=== PATIENT | male | born 1985 | race Caucasian/White ===

== ENCOUNTER 2023-12-22 21:44 | Observation (INO) | payer OTHER ==
--- NOTE | 2023-12-22 21:50 | ED ---
General Adult HPI - General Stated complaint: R knee injury, L ankle injury Time Seen by Provider: 12/22/23 21:45 - History of Present Illness Initial comments: Dictation was produced using [employer] dictation software. please excuse any grammatical, word or spelling errors. Chief Complaint: 38-year-old male presents emergency department with rigid right knee dislocation left ankle sprain History of Present Illness: Patient is a 38-year-old male presents to the emergency department after he fell. He was taking a nap when he was called down to eat dinner. He came down the stairs and twisted his left ankle and fell to the ground and when he looked up and saw that his right knee was dislocated. His family helped him stand up and his right knee relocated. Patient complaining of right knee pain left ankle pain. Denies any numbness tingling paresthesias. Patient has history of prediabetes. He is prescribed metformin but is not taking it. Patient given analgesics by prehospital providers. The ROS documented in this emergency department record has been reviewed and confirmed by me. Those systems with pertinent positive or negative responses have been documented in the HPI. All other systems are other negative and/or noncontributory. - Related Data Allergies Allergy/AdvReac Type Severity Reaction Status Date / Time No Known Allergies Allergy Verified 12/22/23 22:57 Review of Systems ROS Statement: Those systems with pertinent positive or pertinent negative responses have been documented in the HPI. ROS Other: All systems not noted in ROS Statement are negative. General Exam - General Exam Comments Initial Comments: General: Well-appearing, nontoxic, no acute distress. Head: Normocephalic, atraumatic Eyes: PERRLA, EOMI ENT: Airway patent Chest: Nonlabored breathing Skin: No visual rash, normal skin tone Neuro: Alert and oriented 3 Musculoskeletal: No gross abnormalities Lower extremities: Ankle slightly swollen, right knee is without any gross deformity, DP pulse is 2+ Course Vital Signs 12/22/23 22:50 Temperature 98.0 F Pulse Rate 87 Respiratory 22 Rate O2 Sat by Pulse 98 Oximetry Medical Decision Making - Medical Decision Making Was pt. sent in by a medical professional or institution (, PA, TONGUE TRIMMER, urgent care, hospital, or usp...) When possible be specific @ -No Did you speak to anyone other than the patient for history (EMS, parent, family, police, friend...)? What history was obtained from this source @ -No Did you review nursing and triage notes (agree or disagree)? Why? @ -I reviewed and agree with nursing and triage notes Were old charts reviewed (outside hosp., previous admission, EMS record, old EKG, old radiological studies, urgent care reports/EKG's, usp records)? Report findings @ -No old charts were reviewed Differential Diagnosis (chest pain, altered mental status, abdominal pain women, abdominal pain men, vaginal bleeding, musculoskeletal, weakness, fever, dyspnea, syncope, headache, dizziness, GI bleed, back pain, seizure, CVA, palpatations, mental health)? @ -Not applicable EKG interpreted by me (3pts min.). @ -None done X-rays interpreted by me (1pt min.). @ -Right knee x-ray left ankle x-ray shows no acute processes CT interpreted by me (1pt min.). @ -None done U/S interpreted by me (1pt. min.). @ -None done What testing was considered but not performed or refused? (CT, X-rays, U/S, labs)? Why? @ -None What meds were considered but not given or refused? Why? @ -None Did you discuss the management of the patient with other professionals (professionals i.e. , PA, TONGUE TRIMMER, lab, RT, psych nurse, addiction social worker, aircraft maintenance manager, teacher, county records management officer, rn case manager hospice)? Give summary @ -See above. Case also discussed with vascular surgery who is willing to be on consult. Was smoking cessation discussed for >3mins.? @ -No Was critical care preformed (if so, how long)? @ -No Were there social determinants of health that impacted care today? How? (Homelessness, low income, unemployed, alcoholism, drug addiction, transportation, low edu. Level, literacy, decrease access to med. care, shelter, rehab)? @ -No Was there de-escalation of care discussed even if they declined (Discuss DNR or withdrawal of care, Hospice)? DNR status @ -No What co-morbidities impacted this encounter? (DM, HTN, Smoking, COPD, CAD, Cancer, CVA, ARF, Chemo, Hep., AIDS, mental health diagnosis, sleep apnea, morbid obesity)? @ -None Was patient admitted / discharged? Hospital course, mention meds given and route, prescriptions, significant lab abnormalities, going to OR and other pertinent info. @ -38-year-old male presents emergency department with concern for right knee dislocation with spontaneous relocation. Vital signs stable. Neurovascular check of the right lower extremity is unremarkable. Left ankle appears to be sprain. Left ankle x-ray is negative. Patient be admitted to observation consultation to orthopedic surgery vascular surgery for concerns of popliteal artery spasms. Patient ordered for serial neurovascular checks of the right lower extremity Undiagnosed new problem with uncertain prognosis? @ -No Drug Therapy requiring intensive monitoring for toxicity (Heparin, Nitro, Insulin, Cardizem)? @ -No Were any procedures done? @ -No Diagnosis/symptom? Acute, or Chronic, or Acute on Chronic? Uncomplicated ( without systemic symptoms) or Complicated (systemic symptoms)? @ -Right knee dislocation Side effects of treatment? @ -No Exacerbation, Progression, or Severe Exacerbation? @ -No Poses a threat to life or bodily function? How? (Chest pain, [place], [place], pneumonia, PE, COPD, DKA, ARF, appy, cholecystitis, CVA, Diverticulitis, Homicidal, Suicidal, threat to staff... and all critical care pts) @ -yes Disposition Clinical Impression: Knee dislocation Disposition: ADMITTED IP TO THIS [facility] Condition: Fair Referrals: None,Stated [Primary Care Provider] - 1-2 days Decision Time: 01:36
--- NOTE | 2023-12-22 22:29 | XR ---
EXAMINATION TYPE: XR knee complete RT DATE OF EXAM: 12/22/2023 CLINICAL HISTORY: Knee dislocation TECHNIQUE: Three views of the right knee are obtained. COMPARISON: None. FINDINGS: There is no acute fracture/dislocation evident in right knee. Mild to moderate tricompartm ent joint space loss with mild spurring patellofemoral compartment. Increase density in the suprapate llar bursa suspicious for moderate-sized joint effusion. IMPRESSION: There is no acute fracture or dislocation in the right knee.
--- NOTE | 2023-12-22 22:30 | XR ---
EXAMINATION TYPE: XR ankle complete LT DATE OF EXAM: 12/22/2023 CLINICAL HISTORY: ankle sprain, knee dislocation TECHNIQUE: Frontal, lateral and oblique images of the left ankle are obtained. COMPARISON: None. FINDINGS: There is no acute fracture/dislocation evident in the left ankle. The ankle mortise appea rs within normal limits. Mild to moderate diffuse subcutaneous edema with more focal moderate soft ti ssue swelling over the lateral malleolus. IMPRESSION: There is no acute fracture or dislocation in the left ankle.
[2023-12-23] MEDS ORDERED: ONDANSETRON 4 MG/2 ML VIAL IVP PRN (01:30)
[2023-12-23] MEDS ORDERED: NALOXONE 0.4 MG/ML 1 ML VIAL IV PRN (01:30)
[2023-12-23] MEDS ORDERED: oxyCODONE-APAP 5-325MG 1 EACH TAB PO PRN (01:30)
[2023-12-23 01:58] LABS: Basophils # (A) 0.1 k/uL (0-0.2); Basophils % (A) 1 %; Eosinophils # (A) 0.2 k/uL (0-0.7); Eosinophils % (A) 1 %; HCT 44.3 % (39.0-53.0); HGB 14.6 gm/dL (13.0-17.5); Lymphocytes # (A) 3.2 k/uL (1.0-4.8); Lymphocytes % (A) 23 %; MCH 29.8 pg (25.0-35.0); MCV 90.3 fL (80.0-100.0); Mean Platelet Volume 9.3; Monocytes # (A) 0.5 k/uL (0-1.0); Monocytes % (A) 4 %; Neutrophils % (A) 71 %; Platelet Count 276 k/uL (150-450); RBC 4.91 m/uL (4.30-5.90); RDW 13.1 % (11.5-15.5); WBC 14.2 k/uL (3.8-10.6)
[2023-12-23 02:08] LABS: African American GFR (CKD) >90 (>60 ml/min/1.73 sqM); Anion Gap 5 mmol/L; Blood Urea Nitrogen 18 mg/dL (9-20); Calcium 8.9 mg/dL (8.4-10.2); Carbon Dioxide 29 mmol/L (22-30); Chloride 105 mmol/L (98-107); Glucose 178 mg/dL (74-99); Non-African American GFR(CKD) >90 (>60 ml/min/1.73 sqM); Potassium 3.9 mmol/L (3.5-5.1); Sodium 139 mmol/L (137-145)
[2023-12-23] MEDS: KETOROLAC 15 MG/ML 1 ML VIAL IVP PRN (02:12)
[2023-12-23] MEDS: SODIUM CHLORIDE 0.9% 1,000 ML IV SCH (02:13)
[2023-12-23 02:21] LABS: Partial Thromboplastin Time 24.7 sec (22.0-30.0); Prothrombin Time 10.5 sec (10.0-12.5)
--- NOTE | 2023-12-23 07:56 | P.CNOR ---
History of Present Illness - HPI History of present illness: the patient is very pleasant extremely morbidly obese 38-year-old male who is presently in the emergency department with concern for a right knee patellar dis location versus walter dislocation. According to the patient yesterday he got up from sleeping to go outside and eat when he lost his balance and fell. He injured his right knee and left ankle.the patient is unsure of how he fell but states there is obvious deformity in his knee. He was helped up and his knee straightened. He had difficult time ambulating due to both extremities being injured and was brought to the ER. In the ER x-rays were normal but given the patient's weight, mechanism of injury, and deformity emergency department physician had concern for a knee dislocation. ABIs were normal in the emergency department. Both orthopedics and vascular surgery were consulted and the p jane was admitted to internal medicine. Past Medical History Past Medical History: Hypertension Additional Past Medical History / Comment(s): pre diabetic Past Surgical History: No Surgical Hx Reported Past Psychological History: No Psychological Hx Reported Smoking Status: Never smoker Past Alcohol Use History: None Reported Past Drug Use History: None Reported Medications and Allergies Home Medications Medication Instructions Recorded Confirmed Type No Known Home Medications 12/23/23 12/23/23 History Allergies Allergy/AdvReac Type Severity Reaction Status Date / Time No Known Allergies Allergy Verified 12/23/23 07:41 Physical Examination the patient is resting comfortably on a hospital gurney. He is extremely morbidly obese. He is alert and able to answer questions. He demonstrates nonlabored breathing. He is diaphoretic. His head is normocephalic and atraumatic. His abdomen is obese. On inspection of the right lower extremity there are no obvious deformities. There is swelling and ecchymosis over the knee and a moderate effusion. There is global tenderness throughout the knee. Ligamentous exam is deferred due to guarding and patient discomfort. The patient's thigh and calf are soft and compressible. The patient has palpable dorsalis pedis and posterior tibial pulses. He is able to actively plantarflex and dorsiflex his ankle and his toes. Sensation is intact to light touch in the distribution of the superficial peroneal nerve, deep peroneal nerve, and tibial nerve. Inspection of the left ankle shows mild swelling and diffuse tenderness. There are no obvious deformities. Results x-rays of the right knee and left ankle are unremarkable and show no obviously dislocated joints or fractures. - Labs Labs: Abnormal Lab Results - Last 24 Hours (Table) 12/23/23 12/23/23 Range/Units 01:39 01:39 WBC 14.2 H (3.8-10.6) k/uL Neutrophils # 10.0 H (1.3-7.7) k/uL Glucose 178 H (74-99) mg/dL H & H 12/23/23 Range/Units 01:39 Hgb 14.6 (13.0-17.5) gm/dL Hct 44.3 (39.0-53.0) % Coagulation 12/23/23 Range/Units 01:39 INR 1.0 (<1.2) Result Diagrams: 12/23/23 01:39 12/23/23 01:39 Assessment and Plan Assessment: acute right knee injury patellar dislocation versus knee dislocation Left ankle sprain Extreme morbid obesity with BMI 54.7 Plan: I met with and examined the patient in the emergency department and also reviewed all imaging studies. The patient's right knee injury is most likely a transient patellar dislocation that it is possible that he had a walter knee di slocation. Other than swelling and ecchymosis in the knee his exam is completely benign with soft compartments, no nerve deficits and a well-perfused foot with a palpable pulse. I would recommend an MRI of the right knee to rule out a multi-ligamentous knee injury. This has been ordered and hopefully can be completed at this facility given the patient's extreme morbid obesity. In the interim he should be in a knee immobilizer on the right knee. If the patient had a transient patellar dislocation he is okay to discharge in a brace and can weight-bear as tolerated. If the patient did in fact dislocate his knee and has a multi-ligamentous knee injury that is an injury that is outside of my scope of practice and the capabilities of this facility. He would need transfer and follow-up with an orthopedic surgeon that manages multi-ligamentous knee injuries. I would defer arranging this to the primary service. The patient does not appear to have a vascular injury but we'll defer further workup and management to vascular surgery who has been consulted. In regards to patient's left ankle he most likely has a sprain and I would recommend either a brace or boot and protected weightbearing. We will continue to follow and we'll make recommendations pending the patient's right knee MRI. Time with Patient: Greater than 30
--- NOTE | 2023-12-23 09:35 | US ---
EXAMINATION TYPE: US arterial LE multi level DATE OF EXAM: 12/23/2023 8:50 AM CLINICAL INDICATION: Male, 38 years old with history of dislocated knee,evaluate arterial flow; Patie nt dislocated right knee this weekend, wanted to assess any arterial flow problems, both feet warm to the touch History of: Smoker: n Hypertension: y Diabetic: pre Hyperlipidemia: n TIA/CVA: n Previous Vascular Surgery: n CAD: n WV: n Vascular Ulcers: n Claudication: n Gangrene: n Doppler Waveforms: Right: Multiphasic Left: Multiphasic Right Brachial Pressure: 158 Left Brachial Pressure: 171 Ankle-Brachial Indices: Right: 1.0 Left: 1.1 (Vessel hardening > 1.4; Normal 0.9 - 1.4, Moderate 0.7 - 0.9, Severe 0.5-0.7) Toe Brachial Indices: Right: 0.9 Left: 0.9 IMPRESSION: Ankle brachial indices within normal limits.
--- NOTE | 2023-12-23 10:40 | P.GSCN ---
History of Present Illness Consult date: 12/23/23 Reason for Consult: Dislocated knee Requesting physician: Ritchie Ordonez History of present illness: This is a pleasant 38-year-old male Who was brought into the emergency department yesterday after stumbling and taking a fall. He states that he braced himself going down on his right knee on the fall. States he needed some help getting up. Afterwards he had looked at his knee and noticed that it looke d displaced. He came in for further evaluation. Consult was placed for orthopedic surgery as well as vascular surgery. Patient states he has pain and swelling in his knee however he has no other pain down his lower extremity no pain in his foot or toes. No numbness or tingling. He has good range of motion of his ankle and toes. Review of Systems A 14 point review systems was completed all pertinent positives and negatives as stated in the HPI. Past Medical History Past Medical History: Hypertension Additional Past Medical History / Comment(s): pre diabetic Past Surgical History: No Surgical Hx Reported Past Psychological History: No Psychological Hx Reported Smoking Status: Never smoker Past Alcohol Use History: None Reported Past Drug Use History: None Reported Medications and Allergies Home Medications Medication Instructions Recorded Confirmed Type No Known Home Medications 12/23/23 12/23/23 History Allergies Allergy/AdvReac Type Severity Reaction Status Date / Time No Known Allergies Allergy Verified 12/23/23 07:41 Surgical - Exam Vital Signs Temp Pulse Resp Pulse Ox 98.0 F 87 22 98 12/22/23 22:50 12/22/23 22:50 12/22/23 22:50 12/22/23 22:50 General appearance: The patient is alert, oriented, appears in no acute distress. Obese. HET: Head is normocephalic and atraumatic. Pupils are equal and reactive. Neck: Supple. Heart: Regular. Lungs: Equal expansion, normal respiratory effort. Abdomen: Soft, nontender, nondistended. Extremities: Normal skin color and turgor. Right knee with swelling and bruising. Palpable bilateral DP and PT pulses. Good capillary refill, sensorimotor intact. Neurological: No focal deficits. Strength and sensation are grossly intact. Results - Labs 12/23/23 01:39 12/23/23 01:39 Abnormal Lab Results - Last 24 Hours (Table) 12/23/23 12/23/23 Range/Units 01:39 01:39 WBC 14.2 H (3.8-10.6) k/uL Neutrophils # 10.0 H (1.3-7.7) k/uL Glucose 178 H (74-99) mg/dL Diabetes panel 12/23/23 Range/Units 01:39 Sodium 139 (137-145) mmol/L Potassium 3.9 (3.5-5.1) mmol/L Chloride 105 (98-107) mmol/L Carbon Dioxide 29 (22-30) mmol/L BUN 18 (9-20) mg/dL Creatinine 0.85 (0.66-1.25) mg/dL Glucose 178 H (74-99) mg/dL Calcium 8.9 (8.4-10.2) mg/dL Calcium panel 12/23/23 Range/Units 01:39 Calcium 8.9 (8.4-10.2) mg/dL Pituitary panel 12/23/23 Range/Units 01:39 Sodium 139 (137-145) mmol/L Potassium 3.9 (3.5-5.1) mmol/L Chloride 105 (98-107) mmol/L Carbon Dioxide 29 (22-30) mmol/L BUN 18 (9-20) mg/dL Creatinine 0.85 (0.66-1.25) mg/dL Glucose 178 H (74-99) mg/dL Calcium 8.9 (8.4-10.2) mg/dL Adrenal panel 12/23/23 Range/Units 01:39 Sodium 139 (137-145) mmol/L Potassium 3.9 (3.5-5.1) mmol/L Chloride 105 (98-107) mmol/L Carbon Dioxide 29 (22-30) mmol/L BUN 18 (9-20) mg/dL Creatinine 0.85 (0.66-1.25) mg/dL Glucose 178 H (74-99) mg/dL Calcium 8.9 (8.4-10.2) mg/dL - Imaging Comments: Arterial duplex lower extremities with bilateral good waveforms and multiphasic signals. KATERYNA right 1.00, left 1.07 Knee x-ray reports no acute fracture or dislocation in the right knee. X-ray left ankle no acute fracture or dislocation of the left ankle. Assessment and Plan Assessment: 1. Acute right knee injury, patellar dislocation versus knee dislocation 2. Morbid obesity Plan: 1. Lower extremity arterial duplex ordered and reviewed, with evidence of good blood flow 2. Continue with recommendations from orthopedic surgery 3. There is no indication for any vascular surgical intervention Thank you for this consultation, we will sign off at this time. The impression and plan of care has been dictated as directed. I performed a history and examination of this patient, discussed the same with the dictator. I agree with the dictator's note ,documented as a scribe. Any additional findings or plans will be noted.
[2023-12-23] MEDS: FAMOTIDINE 20 MG TAB PO SCH (11:56)
--- NOTE | 2023-12-23 11:58 | P.HPIM ---
History of Present Illness Patient is a pleasant 38-year-old male patient is a pleasant 38-year-old male admitted for fall and right patellar dislocation although imaging is negative although patient has significant swelling unable to bear weight. Patient also has a Doppler ultrasound of the right leg which is also within normal limits. Patient was evaluated by orthopedic surgery they are recommending an MRI to rule out any ligamental tears. Further plan depending on MRI results. Patient is obese. REVIEW OF SYSTEMS: CONSTITUTIONAL: No fever, no malaise, no fatigue. HEENT: No recent visual problems or hearing problems. Denied any sore throat. CARDIOVASCULAR: No chest pain, orthopnea, PND, no palpitations, no syncope. PULMONARY: No shortness of breath, no cough, no hemoptysis. GASTROINTESTINAL: No diarrhea, no nausea, no vomiting, no abdominal pain. NEUROLOGICAL: No headaches, no weakness, no numbness. HEMATOLOGICAL: Denies any bleeding or petechiae. GENITOURINARY: Denies any burning micturition, frequency, or urgency. MUSCULOSKELETAL/RHEUMATOLOGICAL: As mentioned in the HPI ENDOCRINE: Denies any polyuria or polydipsia. The rest of the 14-point review of systems is negative. PHYSICAL EXAMINATION: GENERAL: The patient is alert and oriented x3, not in any acute distress. Well developed, well nourished. HEENT: Pupils are round and equally reacting to light. EOMI. No scleral icterus. No conjunctival pallor. Normocephalic, atraumatic. No pharyngeal erythema. No thyromegaly. CARDIOVASCULAR: S1 and S2 present. No murmurs, rubs, or gallops. PULMONARY: Chest is clear to auscultation, no wheezing or crackles. ABDOMEN: Soft, nontender, nondistended, normoactive bowel sounds. No palpable organomegaly. MUSCULOSKELETAL: As mentioned in HPI, patient has significant swelling and bruises in the right knee active and passive motions of the right knee are restricted EXTREMITIES: No cyanosis, clubbing, or pedal edema. NEUROLOGICAL: Gross neurological examination did not reveal any focal deficits. SKIN: No rashes. Assessment and plan -Right knee swelling and pain: Patient is getting an MRI to see if there is any patellar dislocation with or without ligamental injury. Orthopedic surgery evaluated the patient patient is on Percocet and Toradol for pain along with Pepcid. -Obesity DVT prophylaxis: Lovenox Past Medical History Past Medical History: Hypertension Additional Past Medical History / Comment(s): pre diabetic Past Surgical History: No Surgical Hx Reported Past Psychological History: No Psychological Hx Reported Smoking Status: Never smoker Past Alcohol Use History: None Reported Past Drug Use History: None Reported Medications and Allergies Home Medications Medication Instructions Recorded Confirmed Type No Known Home Medications 12/23/23 12/23/23 History Allergies Allergy/AdvReac Type Severity Reaction Status Date / Time No Known Allergies Allergy Verified 12/23/23 07:41 Physical Exam Vitals: Vital Signs Temp Pulse Resp BP Pulse Ox 12/23/23 04:00 91 20 145/56 94 L 12/23/23 02:07 90 18 144/104 95 12/22/23 22:50 98.0 F 87 22 98 Intake and Output 12/22/23 12/23/23 12/23/23 22:59 06:59 14:59 Other: Weight 163.293 kg Results CBC & Chem 7: 12/23/23 01:39 12/23/23 01:39 Labs: Abnormal Lab Results - Last 24 Hours (Table) 12/23/23 12/23/23 Range/Units 01:39 01:39 WBC 14.2 H (3.8-10.6) k/uL Neutrophils # 10.0 H (1.3-7.7) k/uL Glucose 178 H (74-99) mg/dL
[2023-12-23] MEDS: oxyCODONE-APAP 7.5-325MG 1 EACH TAB PO PRN (16:35)
--- NOTE | 2023-12-23 20:10 | MR ---
EXAMINATION TYPE: MR knee RT wo con DATE OF EXAM: 12/23/2023 COMPARISON: Radiograph 12/22/2023 HISTORY: 38-year-old male Right knee injury, dislocation. TECHNIQUE: Multiplanar, multisequence imaging of the right knee is performed without IV contrast. FINDINGS: Extensive anterior soft tissue swelling. Extensive hemorrhagic fluid above the patella cecilia uring up to 10.1 cm craniocaudal by 2.3 cm thick by 10.5 cm wide. There is evidence of a quadriceps t endon rupture. Some minimal lateral inserting fibers may remain, sagittal image 29 but the vast major ity is torn and stump retracted by approximately 2.3 cm. Secondary redundancy of the patellar tendon and lateral patellar translation. Mild to moderate irregular cartilage loss along the patellar articular cartilage. Trochlear articular cartilage is relatively maintained. Some degenerative signal noted within the posterior horn and body of the medial meniscus without disc rete tear. Lateral meniscus also appears intact. Bicompartmental articular cartilage appears maintained. The ACL, PCL appear intact. Prominent edema overlying the MCL could relate to the generalized soft tissue swelling or grade 1 MCL sprain. The graft some thickening and inhomogeneity at the femoral attachment of the LCL proper coul d represent additional grade 1 sprain. LCL complex otherwise appears intact. Normal popliteal artery anatomy and muscle bulk. No suspicious bone marrow replacement. Patchy red marrow may be seen in the setting of anemia, obesit y, smoking, chronic disease. Small joint effusion. This effusion shows some low T2-weighted signal, axial image 26 suggesting some hemorrhage. No Bejarano's cyst. IMPRESSION: 1. Quadriceps tendon rupture at its patellar insertion. Stump retraction by 2.3 cm. Minimal lateral i nserting fibers may remain. 2. Extensive associated anterior hematoma above the patella measuring up to 10.1 x 2.3 x 10.5 cm. Sma ll joint effusion, likely some blood within the joint given low T2 signal. 3. Grade 1 sprains MCL and femoral attachment of the LCL proper. 4. Underlying mild patellofemoral compartmental OA characterized by irregular cartilage thinning shruti g the patellar articular surface. 5. Degenerative signal posterior horn and body of the medial meniscus without discrete meniscal tear at this time.
--- NOTE | 2023-12-24 08:00 | P.PN ---
Progress Note - Text I met with the patient this morning to discuss his MRI results. He has a full- thickness quadriceps tendon tear. We discussed that due to his extreme morbid obesity and body habitus clinical exam of the knee is exceedingly difficult but he does have a palpable defect above the patella and an inability to perform a straight leg raise. My recommendation was to perform an open repair of his quadriceps tendon later today. His treatment nothing by mouth until surgery. I'm happy taking over as primary service given the patient's isolated orthopedic injury.
[2023-12-24] MEDS: ENOXAPARIN 60 MG/0.6 ML SYRINGE SQ SCH (09:22)
--- NOTE | 2023-12-24 10:04 | P.PN ---
Subjective Progress Note Date: 12/24/23 Principal diagnosis: Right knee injury Patient is seen and examined today as a follow-up for right knee injury. He is currently lying in bed with pillow under his right knee. States he has pain however not too bad without movement. Yesterday he underwent arterial duplex of the lower extremities with normal bilateral lower extremity arterial flow. He had his MRI of the knee yesterday which reported quadricep tendon rupture at patellar insertion. With anterior hematoma above the patella. Patient is scheduled to undergo surgery today with orthopedics for right open quadricep tendon repair. Objective - Vital Signs Vital signs: Vital Signs Temp 98.0 F 12/24/23 07:00 Pulse 63 12/24/23 07:00 Resp 16 12/24/23 07:00 BP 119/70 12/24/23 07:00 Pulse Ox 98 12/24/23 07:00 FiO2 Intake & Output 12/23/23 12/24/23 12/24/23 18:59 06:59 18:59 Intake Total 118 Output Total 525 Balance 118 -525 Weight 163.293 kg Intake: Oral 118 Output: Urine 525 Other: Voiding Method Toilet Toilet # Voids 1 - Exam General appearance: The patient is alert, oriented, appears in no acute distress. HET: Head is normocephalic and atraumatic. Neck: Supple. Abdomen: Soft, nondistended. Extremities: Normal skin color and turgor. Right knee swelling and bruising. Palpable DP and PT pulses. Neurological: No focal deficits. - Labs CBC & Chem 7: 12/23/23 01:39 12/23/23 01:39 Assessment and Plan Assessment: 1. Acute right knee injury, patellar dislocation versus knee dislocation 2. Morbid obesity Plan: 1. Lower extremity arterial duplex ordered and reviewed, with evidence of good blood flow. This was discussed with patient. 2. Continue with recommendations from orthopedic surgery 3. There is no indication for any vascular surgical intervention Thank you for this consultation, we will sign off at this time. Please do not hesitate to call us if further needed. The impression and plan of care has been dictated as directed. I performed a history and examination of this patient, discussed the same with the dictator. I agree with the dictator's note ,documented as a scribe. Any additional findings or plans will be noted.
[2023-12-24] MEDS ORDERED: DEXTROSE 50% SYRINGE 50 ML IVP PRN ×2 (12:13)
--- NOTE | 2023-12-24 12:17 | P.PN ---
Subjective Progress Note Date: 12/24/23 Patient is a pleasant 38-year-old male patient is a pleasant 38-year-old male admitted for fall and right patellar dislocation although imaging is negative although patient has significant swelling unable to bear weight. Patient also has a Doppler ultrasound of the right leg which is also within normal limits. Patient was evaluated by orthopedic surgery they are recommending an MRI to rule out any ligamental tears. Further plan depending on MRI results. Patient is obese. 12/24/2023 Patient is evaluated in the follow-up on the medical floor. He does continue to report significant pain to his right knee 8 out of 10. Unable to lift his leg off the bed without increasing pain to the right knee. Patient had a MRI completed of this knee which does reveal quadriceps tendon rupture at its patellar insertion with stump retraction by 2.3 cm. There is minimal lateral inserting fibers may remain. Extensive associated anterior hematoma above the patella measuring up to 2.1 x 2.3 x 10.5 cm with a small joint effusion and likely some blood within the joint given low T2 signal. There is a grade 1 sprain of the MCL and femoral attachment of the LCL proper. Underlying mild patellofemoral compartmental OA characterized by an irregular cartilage thinning along the patellar articular surface. There is degenerative signal posterior horn and body of the medial meniscus without discrete meniscal tear at this time. After further evaluation by orthopedics patient is scheduled to undergo right open quadriceps tendon tear today. Currently receiving Percocet and IV Toradol for pain management states that this is effectively controlling his pain at this time and he has been resting comfortably in bed. He is n.p.o. and pending surgical repair today. Review of Systems Constitutional: Denied any fatigue denied any fever. Cardio vascular: denied any chest pain, palpitations Gastrointestinal: denied any nausea, vomiting, diarrhea Pulmonary: Denied any shortness of breath cough Neurologic denied any new focal deficits All inpatient medications were reviewed and appropriate changes in these medications as dictated in the interval history and assessment and plan. PHYSICAL EXAMINATION: GENERAL: The patient is alert and oriented x3, not in any acute distress. Well developed, well nourished. HEENT: Pupils are round and equally reacting to light. EOMI. No scleral icterus. No conjunctival pallor. Normocephalic, atraumatic. No pharyngeal erythema. No thyromegaly. CARDIOVASCULAR: S1 and S2 present. No murmurs, rubs, or gallops. PULMONARY: Chest is clear to auscultation, no wheezing or crackles. ABDOMEN: Soft, nontender, nondistended, normoactive bowel sounds. No palpable organomegaly. MUSCULOSKELETAL: As mentioned in HPI, patient has significant swelling and bruises in the right knee active and passive motions of the right knee are restricted EXTREMITIES: No cyanosis, clubbing, or pedal edema. Bruising to the right knee with mild soft tissue swelling and tenderness. +2 peripheral pulses. NEUROLOGICAL: Gross neurological examination did not reveal any focal deficits. SKIN: No rashes. Assessment and plan -Right knee swelling and pain: Due to full thickness quadricepts tendon tear and will be going for surgical repair of this today with Dr Salomon. Patient contin ues on DVT prophylaxis with lovenox and pain management with IV toradol and percocet -Morbid obesity with BMI of 54.7. -Leukocytosis reactive -Hyperglycemia with reports of being a "prediabetic" Will check a hemoglobin A1C. Novolog sliding scale and accuchecks ACHS ordered. GI prophylaxis DVT prophylaxis: Lovenox Full Code Physical and occupational therapy will be consulted for post surgical e valuation. The impression and plan of care has been dictated by Trish Mendoza Nurse Practitioner as directed. Dr. Lali MD I have performed a history and physical examination and medical decision making of this patient, discussed the same with the dictator, and agree with the dictators assessment and plan as written, documented as a scribe. Based on total visit time, I have performed more than 50% of this visit. Objective - Vital Signs Vital signs: Vital Signs Temp 98.0 F 12/24/23 07:00 Pulse 63 12/24/23 07:00 Resp 16 12/24/23 07:00 BP 119/70 12/24/23 07:00 Pulse Ox 98 12/24/23 07:00 FiO2 Intake & Output 12/23/23 12/24/23 12/24/23 18:59 06:59 18:59 Intake Total 118 Output Total 525 Balance 118 -525 Weight 163.293 kg Intake: Oral 118 Output: Urine 525 Other: Voiding Method Toilet Toilet # Voids 1 - Labs CBC & Chem 7: 12/23/23 01:39 12/23/23 01:39 Assessment and Plan Time with Patient: Less than 30
[2023-12-24 13:22] LABS: Glucose,Whole Blood 158 mg/dL (70-110)
[2023-12-24] MEDS: INSULIN ASPART (NovoLOG) 100 UNIT/ML VIAL SQ SCH (13:38)
[2023-12-24] MEDS: LACTATED RINGERS 1,000 ML IV ONE ×2 (16:49→18:07)
[2023-12-24 16:55] LABS: Glucose,Whole Blood 133 mg/dL (70-110)
[2023-12-24] MEDS ORDERED: GLYCOPYRROLATE 0.2 MG/ML 2 ML VIAL ONE (16:57)
[2023-12-24] MEDS ORDERED: PROPOFOL 10 MG/ML 20 ML VIAL IV ONE (16:57)
[2023-12-24] MEDS ORDERED: ROCURONIUM 10 MG/ML (5 ML VIAL) IV ONE (16:57)
[2023-12-24] MEDS ORDERED: fentaNYL (PF) 50 MCG/ML 2 ML AMP ONE (16:57)
[2023-12-24] MEDS ORDERED: SUCCINYLCHOLINE CHLORIDE 200 MG/10 ML VIAL IV ONE (16:57)
[2023-12-24] MEDS ORDERED: PHENYLEPHRINE 10 MG/ML VIAL ONE (16:57)
[2023-12-24] MEDS ORDERED: HYDROmorphone (PF) 1 MG/ML ONE (16:57)
[2023-12-24] MEDS ORDERED: NEOSTIGMINE 1 MG/ML 10 ML VIAL ONE (16:57)
[2023-12-24] MEDS ORDERED: MIDAZOLAM 2 MG/2 ML VIAL ONE (16:57)
[2023-12-24] MEDS ORDERED: KETOROLAC 30 MG/ML 1 ML VIAL ONE (16:57)
[2023-12-24] MEDS ORDERED: LIDOCAINE 1% INJ 10MG/ML (20 ML MDV) ONE (16:57)
--- NOTE | 2023-12-24 18:41 | XR ---
EXAMINATION TYPE: XR knee limited RT, FL guidance operating room Intraoperative/procedural fluoroscop ic services were provided. Total fluoroscopy time is 14.4 seconds with a total of 3 submitted images to PACS. Please see the operative/procedural note for further details. DAP: 0.47 x 5 Gycm2
--- NOTE | 2023-12-24 19:01 | P.OP ---
Date of Procedure: 12/24/23 Preoperative Diagnosis: 1. Right knee quadriceps tendon tear 2. Extreme morbid obesity, BMI 54.7 Postoperative Diagnosis: Same Procedure(s) Performed: Open repair right quadriceps tendon Anesthesia: ALIREZA Surgeon: Ten Salomon Estimated Blood Loss (ml): 150 IV fluids (ml): 800 Pathology: none sent Condition: stable Disposition: PACU Indications for Procedure: The patient is a very pleasant 38-year-old male with a medical history significant for having a BMI 54.7 who sustained an isolated injury to his right knee this past Saturday evening. He came to the emergency department where the emergency department physician had concern for a knee dislocation based on the patient's mechanism of injury and presenting complaints. X-rays in the ER showed a reduced knee. He was admitted overnight for observation. I examine the patient the following morning and he had a well-perfused foot. His exam was difficult due to his extreme morbid obesity so an MRI was obtained which showed a full-thickness quadriceps tendon rupture. I met with the patient discussed treatment options. My recommendation was to perform an open repair using a 4 strand transosseous technique. We discussed the potential risks and complications of this at length including but certainly not limited to risks from anesthesia, superficial or deep infection, rerupture of the quad tendon, stiffness, extensor lag, arthritis, DVT, PE, delayed wound healing, and inability to regain preinjury level of function, need for further surgery, and possibly loss of life or limb. The patient acknowledges these risks and also understands that there are other less common complications possible. He provided both his verbal and written consent to go forward with surgery. He also understands that he is at a much higher risk of having a complication due to his BMI 54.7. Operative Findings: Full-thickness quadriceps tendon rupture off the superior pole of the patella and rupture of both the medial and lateral retinaculum Description of Procedure: The patient was identified in preoperative holding and the correct right leg was marked with my initials. I reviewed the consent form with the patient and his brother. All their questions were answered. The patient was then brought back to the operating room and anesthesia. He was positioned on the OR table where a general anesthetic and preoperative antibiotics were given. The patient was then positioned for surgery. A tourniquet was applied to the proximal aspect of the right thigh but was not used during the case. His left leg was secured to the OR table with foam and tape. A nonsterile 10:15 drape was applied to occlude the right leg. A presurgical scrub was performed with a chlorhexidine scrub brush. The right leg was then prepped and draped in the standard sterile fashion. Prior to starting surgery timeout was performed identifying the correct patient, operative extremity, and procedure. I began by creating a straight longitudinal incision over the knee starting 4 fingerbreadths above the patella and extending distally to the tibial tubercle. Skin incision was made with a scalpel. Dissection was carried down carefully through the subcutaneous tissue with electrocautery. Immediately upon dissecting through the fascia there was a large hematoma and full thickness tear of the quadriceps tendon. The tendon had completely avulsed off the superior pole the patella and both the medial and lateral retinaculum were torn. The wound was thoroughly irrigated. On inspection of the quadriceps tendon and had severe tendinitis and relatively poor tissue quality despite the patient's young age. A 4 strand repair was then performed using #5 Ethibond and Krakw stitches up the medial and lateral tendon. I then made 3 drill holes from superior to inferior through the patella using fluoroscopy. The central tunnel was made with a 2.5 mm drill bit and the medial and lateral tunnels were made with a 2.0 mm drill bit. The Ethibond sutures were then shuttled through the bone tunnels. With the knee in extension I tied both the medial and lateral limb over the bone bridge on the inferior surface the patella. I was able to nicely reapproximated the quadriceps tendon to the superior pole of the patella and had a shearer repair. I then irrigated the wound including the joint through the retinacular defects. I then repaired the medial and lateral retinacular defect with 0 Vicryl interrupted sutures. The wound was thoroughly irrigated and closed in layers. Skin glue was used to reinforce the skin closure. A sterile dressing was applied followed by a web roll and 4 inch Wesly wrap. After the drapes were taken down and a knee immobilizer was applied. The patient was then awoken from his anesthetic, transferred from the OR table to a gurney, and brought to recovery having tolerated the procedure well. Plan: The patient can weight-bear as tolerated on his right leg in a knee immobilizer. We will leave his Wesly wrap and dressing on for 2 weeks to help with swelling. DVT prophylaxis with aspirin 81 mg twice a day. The patient can discharge home tomorrow when he passes physical therapy. He will need follow-up in the office in 2 weeks for wound check and transition to a hinged knee brace. He does not need x-rays at that time.
[2023-12-24] MEDS: HYDROmorphone 0.5 MG/0.5 ML SYRINGE IVP ONE (19:25)
[2023-12-24] MEDS: ONDANSETRON 4 MG/2 ML VIAL IVP ONE (19:29)
[2023-12-24] MEDS: ASPIRIN 81 MG PO SCH (21:23)
[2023-12-24] MEDS: ceFAZolin 3 GM in SODIUM CHLORIDE 0.9% 100 ML IVPB ONE (21:26)
[2023-12-24 21:56] LABS: Glucose,Whole Blood 183 mg/dL (70-110)
[2023-12-25] MEDS: HYDROmorphone 0.5 MG/0.5 ML SYRINGE IVP PRN (00:40)
[2023-12-25 05:55] LABS: Glucose,Whole Blood 147 mg/dL (70-110)
--- NOTE | 2023-12-25 07:51 | P.DS ---
Providers Date of admission: 12/23/23 01:33 Attending physician: Ten Salomon Consults: 12/23/23 01:30 Consult Physician Routine Consulting Provider: Ten Salomon Consult Reason/Comments: knee dislocation Do you want consulting provider notified?: Already Contacted Consult Physician Routine Consulting Provider: Agata Chung Consult Reason/Comments: knee dislocation Do you want consulting provider notified?: Already Contacted 12/24/23 12:04 Consult Physician Routine Consulting Provider: Maricruz Escalera Consult Reason/Comments: medical management Do you want consulting provider notified?: Yes Primary care physician: Stated None Hospital Course: the patient is a very pleasant 38-year-old male with a medical history significant for having a BMI 54 who sustained a ground-level fall this past weekend. He was admitted through the ER due to concern for a knee dislocation by the ER physician. The patient had minimal clinical evidence of any dislocation and normal x-rays. He had no vascular compromise to the right leg. An MRI was obtained which showed a full-thickness quadriceps tendon tear. I took the patient to the operating room last night performed an open repair. This morning the patient is doing well. His pain is controlled. The dressing over his knee is intact. The knee immobilizer is in place. He can actively plantarflex and dorsiflex his ankle and his toes. We will plan on discharged home today pending his progress with physical therapy. Patient Condition at Discharge: Fair Plan - Discharge Summary New Discharge Prescriptions: New HYDROcodone/APAP 5-325MG [[place] 5-325] 1 - 2 tab PO Q6HR PRN #32 tab PRN Reason: Pain Aspirin 81 mg PO BID #60 tab Docusate [Colace] 100 mg PO BID #30 capsule Discharge Medication List Aspirin 81 mg PO BID #60 tab 12/24/23 [Rx] Docusate [Colace] 100 mg PO BID #30 capsule 12/24/23 [Rx] HYDROcodone/APAP 5-325MG [[place] 5-325] 1 - 2 tab PO Q6HR PRN #32 tab 12/24/23 [Rx] Follow up Appointment(s)/Referral(s): None,Stated [Primary Care Provider] - 1-2 days Ten Salomon MD [Medical Doctor] - 2 Weeks Activity/Diet/Wound Care/Special Instructions: 1. Weight-bear as tolerated on her right lower extremity with crutches 2. Leave her surgical dressing in place, it will be changed her first postoperative appointment 3. Keep your knee immobilizer on at all times including when he sleep, you can remove only for showering 4. Take pain medications as prescribed. While taking narcotic pain medication drink lots of water and take a stool softener 5. Aspirin 81 mg twice a day for blood clot prevention Discharge Disposition: HOME SELF-CARE
[2023-12-25] MEDS: ceFAZolin 3 GM in SODIUM CHLORIDE 0.9% 100 ML IVPB SCH (08:39)
[2023-12-25 12:32] LABS: Glucose,Whole Blood 173 mg/dL (70-110)
--- NOTE | 2023-12-25 14:32 | P.PN ---
Subjective Progress Note Date: 12/25/23 Patient is a pleasant 38-year-old male patient is a pleasant 38-year-old male admitted for fall and right patellar dislocation although imaging is negative although patient has significant swelling unable to bear weight. Patient also has a Doppler ultrasound of the right leg which is also within normal limits. Patient was evaluated by orthopedic surgery they are recommending an MRI to rule out any ligamental tears. Further plan depending on MRI results. Patient is obese. 12/24/2023 Patient is evaluated in the follow-up on the medical floor. He does continue to report significant pain to his right knee 8 out of 10. Unable to lift his leg off the bed without increasing pain to the right knee. Patient had a MRI completed of this knee which does reveal quadriceps tendon rupture at its patellar insertion with stump retraction by 2.3 cm. There is minimal lateral inserting fibers may remain. Extensive associated anterior hematoma above the patella measuring up to 2.1 x 2.3 x 10.5 cm with a small joint effusion and likely some blood within the joint given low T2 signal. There is a grade 1 sprain of the MCL and femoral attachment of the LCL proper. Underlying mild patellofemoral compartmental OA characterized by an irregular cartilage thinning along the patellar articular surface. There is degenerative signal posterior horn and body of the medial meniscus without discrete meniscal tear at this time. After further evaluation by orthopedics patient is scheduled to undergo right open quadriceps tendon tear today. Currently receiving Percocet and IV Toradol for pain management states that this is effectively controlling his pain at this time and he has been resting comfortably in bed. He is n.p.o. and pending surgical repair today. 12/25/2023 Patient is evaluated today postoperative day #1 surgical repair of quadracepts tendon repair. Patient has been up ambulating with physical therapy and knee immobilizer in place. He will discharge home today. His A1C was found to be 7.9 and this is consistent with diagnosis of diabetes mellitus type 2 this was discussed with the patient and he has been started on a low dose of metformin. Patient needs to establish care with a PCP. He verbalizes understanding. Referrals are given. Review of Systems Constitutional: Denied any fatigue denied any fever. Cardio vascular: denied any chest pain, palpitations Gastrointestinal: denied any nausea, vomiting, diarrhea Pulmonary: Denied any shortness of breath cough Neurologic denied any new focal deficits All inpatient medications were reviewed and appropriate changes in these medications as dictated in the interval history and assessment and plan. PHYSICAL EXAMINATION: GENERAL: The patient is alert and oriented x3, not in any acute distress. Well developed, well nourished. HEENT: Pupils are round and equally reacting to light. EOMI. No scleral icterus. No conjunctival pallor. Normocephalic, atraumatic. No pharyngeal erythema. No thyromegaly. CARDIOVASCULAR: S1 and S2 present. No murmurs, rubs, or gallops. PULMONARY: Chest is clear to auscultation, no wheezing or crackles. ABDOMEN: Soft, nontender, nondistended, normoactive bowel sounds. No palpable organomegaly. MUSCULOSKELETAL: As mentioned in HPI, patient has significant swelling and bruises in the right knee active and passive motions of the right knee are restricted EXTREMITIES: No cyanosis, clubbing, or pedal edema. Bruising to the right knee with mild soft tissue swelling and tenderness. +2 peripheral pulses. NEUROLOGICAL: Gross neurological examination did not reveal any focal deficits. SKIN: No rashes. Assessment and plan -Right knee swelling and pain: Due to full thickness quadricepts tendon tear status post surgical repair. -Morbid obesity with BMI of 54.7. -Leukocytosis reactive -Hyperglycemia due to diabetes mellitus type 2 with hemoglobin A1C 7.9. Started on metformin. GI prophylaxis DVT prophylaxis: Lovenox Full Code Physical and occupational therapy have evaluated the patient and cleared medically for discharge home. Patient to continue with the knee immobilizer at all times except showering. Patient to follow up with Dr Salomon on discharge. Establish care with a PCP. The impression and plan of care has been dictated by Trish Mendoza, Nurse Practitioner as directed. Dr. Lali MD I have performed a history and physical examination and medical decision making of this patient, discussed the same with the dictator, and agree with the dictators assessment and plan as written, documented as a scribe. Based on total visit time, I have performed more than 50% of this visit. Objective - Vital Signs Vital signs: Vital Signs Temp 98.3 F 12/25/23 07:43 Pulse 80 12/25/23 07:43 Resp 17 12/25/23 07:43 BP 129/81 12/25/23 07:43 Pulse Ox 99 12/25/23 07:43 FiO2 Intake & Output 12/24/23 12/25/23 12/25/23 18:59 06:59 18:59 Intake Total 1400 200 118 Output Total 675 310 Balance 725 -110 118 Intake: IV 1400 200 Oral 118 Output: Urine 525 310 Estimated Blood Loss 150 Other: Voiding Method Urinal # Voids 2 0 # Bowel Movements 1 - Labs CBC & Chem 7: 12/23/23 01:39 12/23/23 01:39 Labs: Abnormal Lab Results - Last 24 Hours (Table) 12/24/23 12/24/23 12/24/23 Range/Units 13:20 16:53 21:54 POC Glucose (mg/dL) 158 H 133 H 183 H (70-110) mg/dL Hemoglobin A1c (<=6.0) % 12/25/23 12/25/23 Range/Units 05:54 06:54 POC Glucose (mg/dL) 147 H (70-110) mg/dL Hemoglobin A1c 7.9 H (<=6.0) % Assessment and Plan Time with Patient: Less than 30
[2023-12-25 14:37] VITALS: BP 158/76; PULSE 88; RESP 20; TEMP 98.4
== END 2023-12-25 16:52 | disposition home or self-care (01) ==
LOC: EC 21:44 → 6NMEDSUR 12-23 01:33
PROVIDERS: ADMIT Orthopaedic Surgery; ATTEND Orthopaedic Surgery
DX: S76.111A Strain of right quadriceps muscle, fascia and tendon, initial encounter (principal); S83.411A Sprain of medial collateral ligament of right knee, initial encounter; S83.421A Sprain of lateral collateral ligament of right knee, initial encounter; W01.0XXA Fall on same level from slipping, tripping and stumbling without subsequent striking against object, initial encounter; M76.51 Patellar tendinitis, right knee; E11.65 Type 2 diabetes mellitus with hyperglycemia; D72.829 Elevated white blood cell count, unspecified; I10 Essential (primary) hypertension; E66.01 Morbid (severe) obesity due to excess calories; Z68.43 Body mass index [BMI] 50.0-59.9, adult; Z79.84 Long term (current) use of oral hypoglycemic drugs
CPT/HCPCS: 96376 ×4; 96361 ×3; 96365; 96372; 96375 ×2; 99285; 97162; 80048; 85025; 85610; 85730; 83036; 73560; 73562; 73610; 93922; 73721; 27385; G0378 ×3; J0690; J2405; J1650; J1885 ×3; J1170 ×2